=== PATIENT | female | born 1970 ===

== ENCOUNTER → 2020-05-06 14:44 | Outpatient (CLI) | payer OTHER | END | disposition home or self-care (01) | LOC: RAD 14:44 | DX: R91.8 Other nonspecific abnormal finding of lung field (principal) ==

== ENCOUNTER 2020-05-10 15:15 | Outpatient (CLI) | payer OTHER | END 2020-05-10 15:20 | disposition home or self-care (01) | LOC: EKG 15:15 | DX: Z13.6 Encounter for screening for cardiovascular disorders (principal) ==